=== PATIENT | female | born 1955 | race Caucasian/White ===

== ENCOUNTER 2022-11-27 22:06 | Inpatient (IN) | payer OTHER, MEDICAID ==
[~2022-11-27] VITALS: Ht 154.9 cm; Wt 82.5 kg
[~2022-11-27 22:06] MED LIST: ADAL40KI2 SC; METH2.5T PO; PRE1T PO; SIMV-8 PO
[2022-11-27] MEDS ORDERED: IPRATROPIUM BROM 0.5 MG/2.5ML INH SOL NEB ONE (22:45)
[2022-11-27] MEDS ORDERED: ALBUTEROL SULF 2.5 MG/0.5ML(0.5%) NEB SOLN NEB ONE (22:45)
[2022-11-27] MEDS ORDERED: predniSONE 20 MG TAB PO ONE (22:45)
[2022-11-27] MEDS ORDERED: KETOROLAC TROMETH 60MG/2ML VIAL IM ONE (22:45)
[2022-11-27] MEDS ORDERED: ALBUTEROL MEDNEB 2.5 mg/3ml NEB ONE (22:57)
[2022-11-27 23:13] LABS: Hemoglobin 14.2 g/dL (12.2-16.2)
[2022-11-27 23:15] LABS: Basophils # (auto) 0.1 10 ^3/uL (0-0.2); Basophils % (auto) 0.3 % (0.0-2.0); Eosinophils # (auto) 0.2 10 ^3/uL (0-0.8); Eosinophils % (auto) 0.8 % (0.0-7.0); Hematocrit 42.5 % (36.0-46.0); Lymphocytes # (auto) 2.7 10 ^3/uL (0.4-5.4); Lymphocytes % (auto) 13.2 % (10.0-50.0); Mean Corpuscular Hgb Conc. 33.4 g/dL (32.0-36.0); Mean Corpuscular Volume 101.5 fL (80.0-100.0); Monocytes # (auto) 1.1 10 ^3/uL (0-1.3); Monocytes % (auto) 5.5 % (0.0-12.0); Neutrophils # (auto) 16.2 10 ^3/uL (1.6-8.6); Neutrophils % (auto) 80.2 % (37.0-80.0); Red Blood Cells 4.18 10^6/uL (4.0-5.20); Red Cell Distribution Width 15.2 % (11.8-14.3); White Blood Cell 20.2 10^3/uL (4.4-10.8)
[2022-11-27 23:28] LABS: Albumin 3.3 g/dL (3.4-5.0); BUN/Creatinine Ratio 18.5; Calcium 9.1 mg/dL (8.5-10.1); Potassium 3.6 mmol/L (3.5-5.1)
[2022-11-27 23:30] LABS: Bilirubin, Total 0.4 mg/dL (0.2-1.0); Total Protein 7.1 g/dL (6.4-8.2)
[2022-11-27] MEDS ORDERED: AZITHROMYCIN 500MG/ 250ML 250 ML IV ONE (23:30)
[2022-11-27] MEDS ORDERED: cefTRIAXone SOD 1,000 MG VL IV ONE (23:30)
[2022-11-28] MEDS ORDERED: ONDANSETRON HCL 4 MG/2 ML VIAL IV PRN (06:00)
[2022-11-28] MEDS ORDERED: MORPHINE SULFATE INJ 2 MG/ml SYRG IV PRN (06:00)
[2022-11-28] MEDS ORDERED: ACETAMINOPHEN 325 MG TAB PO PRN (06:00)
[2022-11-28] MEDS ORDERED: HYDROcodone-ACET 5/325MG TAB PO PRN (06:00)
[2022-11-28] MEDS ORDERED: NITROGLYCERIN 0.4 MG SL TAB SL PRN (06:00)
[2022-11-28] MEDS ORDERED: TEMAZEPAM 15 MG CAP PO PRN (06:00)
[2022-11-28] MEDS ORDERED: IPRATROPIUM BROM 0.5 MG/2.5ML INH SOL NEB PRN ×2 (06:00→18:00)
[2022-11-28] MEDS ORDERED: IOHEXOL 350 MG/ML 100ML IJ ONE (06:27)
[2022-11-28] MEDS ORDERED: ALBUTEROL SULF NEB PRN ×2 (06:45→18:00)
[2022-11-28] MEDS: cefTRIAXone 1GM/50ML D5W 50 ML IV SCH (09:54)
[2022-11-28] MEDS ORDERED: ENOXAPARIN SOD 40 MG/0.4 ML SYRINGE SC SCH (10:00)
[2022-11-28] MEDS ORDERED: predniSONE 5 MG TAB PO SCH (10:00)
[2022-11-28 10:16] LABS: Urine Bacteria NONE SEEN /hpf (None Seen); Urine Blood Negative /uL (Negative); Urine WBC <1 /hpf (0 - 5)
[2022-11-28] MEDS ORDERED: fentaNYL CITRATE 100 MCG/2 ML VL ONE (13:58)
[2022-11-28] MEDS ORDERED: ANGIOMAX 250 MG VIAL IV ONE (13:58)
[2022-11-28] MEDS ORDERED: SODIUM CHL 0.9% 0 ML ONE (13:58)
[2022-11-28] MEDS ORDERED: MIDAZOLAM HCL 2MG/2ML 2ml VIAL (1mg/ml) ONE (13:58)
[2022-11-28] MEDS ORDERED: ENOXAPARIN SOD 40 MG/0.4 ML SYRINGE SC ONE (14:45)
[2022-11-28 17:31] VITALS: BP 153/75
[2022-11-28] MEDS ORDERED: ALBUTEROL SULF NEB SCH (18:00)
[2022-11-28] MEDS ORDERED: IPRATROPIUM BROM 0.5 MG/2.5ML INH SOL NEB SCH (18:00)
[2022-11-28] MEDS ORDERED: ALBUTEROL MEDNEB 2.5 mg/3ml NEB ONE (18:45)
[2022-11-28] MEDS ORDERED: methylPREDNISolone SOD SUCC 40 MG/ML VL IV SCH (22:00)
[2022-11-28] MEDS: methylPREDNISolone SOD SUCC 40 MG/ML VL IV SCH (23:12)
[2022-11-28] MEDS: ENOXAPARIN SOD 80 MG/0.8ML SYRINGE SC SCH (23:12)
[2022-11-29 07:00] LABS: Basophils # (auto) 0 10 ^3/uL (0-0.2); Eosinophils # (auto) 0 10 ^3/uL (0-0.8); Hemoglobin 12.9 g/dL (12.2-16.2)
[2022-11-29 07:02] LABS: Basophils % (auto) 0.2 % (0.0-2.0); Hematocrit 37.7 % (36.0-46.0); Lymphocytes # (auto) 1.7 10 ^3/uL (0.4-5.4); Lymphocytes % (auto) 10.7 % (10.0-50.0); Mean Corpuscular Hemoglobin 34.4 pg (28.0-32.0); Mean Corpuscular Hgb Conc. 34.3 g/dL (32.0-36.0); Mean Corpuscular Volume 100.2 fL (80.0-100.0); Monocytes # (auto) 0.8 10 ^3/uL (0-1.3); Monocytes % (auto) 4.8 % (0.0-12.0); Neutrophils # (auto) 13.7 10 ^3/uL (1.6-8.6); Neutrophils % (auto) 84.3 % (37.0-80.0); Red Blood Cells 3.76 10^6/uL (4.0-5.20); Red Cell Distribution Width 15.2 % (11.8-14.3); White Blood Cell 16.2 10^3/uL (4.4-10.8)
[2022-11-29 07:24] LABS: INR 0.96 (0.9-1.15); Partial Thromboplastin Time 33.3 sec (24.6-33.4)
[2022-11-29] MEDS: ENOXAPARIN SOD 80 MG/0.8ML SYRINGE SC SCH (10:16)
[2022-11-29] MEDS: cefTRIAXone 1GM/50ML D5W 50 ML IV SCH (10:16)
[2022-11-29] MEDS: methylPREDNISolone SOD SUCC 40 MG/ML VL IV SCH (10:16)
[2022-11-29 12:14] VITALS: BP 142/69
[2022-11-29] MEDS ORDERED: ATOR40TA52 PO (12:35)
[2022-11-29] MEDS ORDERED: FLUT1AER6 PO (12:35)
[2022-11-29] MEDS ORDERED: SULF500T8 PO (12:35)
[2022-11-29] MEDS ORDERED: PRED10TA (12:35)
[2022-11-29] MEDS ORDERED: PRED20TA2 PO (14:55)
[2022-11-29] MEDS ORDERED: AZIT250T9 PO (14:55)
[2022-11-29] MEDS ORDERED: APIX5TAB4 PO (14:55)
[2022-11-29 15:27] VITALS: BP 142/69
== END 2022-11-29 17:05 | disposition home or self-care (01) | DRG 175 ==
LOC: ER 22:08 → TELE 11-28 05:54 → TELE-E-ADS 11-29 11:59
PROVIDERS: ADMIT Nurse Practitioner; ATTEND Hospitalist
DX: I26.99 Other pulmonary embolism without acute cor pulmonale (principal); N17.0 Acute kidney failure with tubular necrosis; J44.1 Chronic obstructive pulmonary disease with (acute) exacerbation; E44.0 Moderate protein-calorie malnutrition; J98.11 Atelectasis; J44.0 Chronic obstructive pulmonary disease with (acute) lower respiratory infection; F17.210 Nicotine dependence, cigarettes, uncomplicated; I10 Essential (primary) hypertension; R79.89 Other specified abnormal findings of blood chemistry; M06.9 Rheumatoid arthritis, unspecified; Z20.822 Contact with and (suspected) exposure to COVID-19; M19.90 Unspecified osteoarthritis, unspecified site; Z68.34 Body mass index [BMI] 34.0-34.9, adult; Z90.49 Acquired absence of other specified parts of digestive tract; Z79.01 Long term (current) use of anticoagulants
CPT/HCPCS: 36415; 36600; 71045; 71275; 80053; 81001; 82805; 83605; 83880; 84484; 85025; 85379; 85610; 85730; 87040; 87426; 93970; 94640; 96365; 96366; 96372; 99291; G0378; J0696; J1885; J2250

== ENCOUNTER 2024-03-02 10:19 | Emergency (ER) | payer OTHER ==
[~2024-03-02] VITALS: Ht 154.9 cm; Wt 86.0 kg
[~2024-03-02 10:19] MED LIST changes: +APIX5TAB4 PO; +ATOR40TA52 PO; +AZIT-43 PO; +FLUT1AER6 PO; -PRE1T PO; +PRED10TA; +PRED20TA2 PO; -SIMV-8 PO; +SIMV20TA20 PO; +SULF500T57 PO
[2024-03-02 10:50] VITALS: BP 156/78; PULSE 90; RESP 18; TEMP 98.3; O2SAT 95
[2024-03-02] MEDS: HYDROcodone-ACET 5/325MG TAB PO ONE (11:36)
[2024-03-02] MEDS ORDERED: TRAM-626 PO (11:58)
== END 2024-03-02 12:03 | disposition home or self-care (01) ==
LOC: ER 10:19
DX: S76.011A Strain of muscle, fascia and tendon of right hip, initial encounter (principal); M16.0 Bilateral primary osteoarthritis of hip; J44.9 Chronic obstructive pulmonary disease, unspecified; E78.5 Hyperlipidemia, unspecified; I10 Essential (primary) hypertension; F17.210 Nicotine dependence, cigarettes, uncomplicated; Z90.49 Acquired absence of other specified parts of digestive tract; Z79.899 Other long term (current) drug therapy; W01.0XXA Fall on same level from slipping, tripping and stumbling without subsequent striking against object, initial encounter; Y93.89 Activity, other specified; Y92.89 Other specified places as the place of occurrence of the external cause; Y99.8 Other external cause status
CPT/HCPCS: 73502